=== PATIENT | female | born 1990 | race Caucasian/White ===

== ENCOUNTER 2017-10-15 08:51 | Emergency (ER) | payer OTHER ==
[2017-10-15 09:00] VITALS: BP 124/71; TEMP 97.1; BMI 20.9
--- NOTE | 2017-10-15 09:12 | ED.PDOC ---
General ED Provider: Dr. CAROL PHILLIPS Chief Complaint: Abdominal Pain Stated Complaint: Severe abdominal pain Time Seen by Physician: 09:08 Mode of Arrival: Walk-In Information Source: Patient Exam Limitations: No limitations Nursing and Triage Documentation Reviewed and Agree: Yes Review of Systems - Review Of Systems Constitutional: Reports: Malaise Respiratory: Reports: No symptoms GI: Reports: Abdominal pain All Other Systems: Reviewed and Negative Past Medical History - Past Medical History Endocrine: Reports: None Cardiovascular: Reports: None Respiratory: Reports: None Hematological: Reports: None Gastrointestinal: Reports: None Genitourinary: Reports: None Neuro/Psych: Reports: None Musculoskeletal: Reports: None Cancer: Reports: None Last Menstrual Period: on menses for 3 years - Surgical History General Surgical History: Reports: Other (bilateral tubal ligation) - Family History Family History: Reports: None - Social History Smoking Status: Former smoker Hx Substance Use: Yes (not recently) Alcohol Screening: None - Immunizations Tetanus Shot up to Date: Yes Physical Exam - Physical Exam Appearance: Well-appearing Pain Distress: Moderate (Diffuse abdominal pain with gentle palpation) ENT: Ears normal, Nose normal, Oropharynx normal Respiratory: Airway patent, Breath sounds clear, Breath sounds equal Cardiovascular: RRR, Pulses normal GI/: Tender (Diffuse abdominal wall tenderness with minimal palpation) Musculoskeletal: Normal strength, ROM intact Skin: Warm, Dry, Normal color Neurological: Sensation intact, Motor intact, Reflexes intact, Alert, Oriented Psychiatric: Affect appropriate, Mood appropriate Critical Care Note - Critical Care Note Total Time (mins): 30 Course - Course Hematology/Chemistry: 10/15/17 09:25 10/15/17 09:25 Orders, Labs, Meds: Lab Review 10/15/17 10/15/17 10/15/17 09:15 09:25 09:25 WBC 5.22 RBC 4.08 L Hgb 11.9 L Hct 34.9 L MCV 85.5 MCH 29.2 MCHC 34.1 RDW Coeff of Julio 11.9 Plt Count 242 Immature Gran % (Auto) 0.4 Neut % (Auto) 60.2 Lymph % (Auto) 24.9 Zavala % (Auto) 8.2 Eos % (Auto) 5.7 Baso % (Auto) 0.6 Immature Gran # (Auto) 0.0 Neut # 3.1 Lymph # 1.3 Zavala # 0.4 Eos # 0.3 Baso # 0.0 Sodium 140 Potassium 3.6 Chloride 107 Carbon Dioxide 23 Anion Gap 13.6 BUN 10 Creatinine 0.74 Estimated GFR (MDRD) 95.00 BUN/Creatinine Ratio 13.51 Glucose 95 Calcium 9.3 Total Bilirubin 0.44 AST 9 L ALT 8 L Alkaline Phosphatase 65 Total Protein 7.6 Albumin 3.9 Globulin 3.7 Albumin/Globulin Ratio 1.05 Lipase 28 Serum , Qual Urine Color Yellow Urine Clarity Clear Urine pH 6.5 Ur Specific [place] 1.010 Urine Protein Negative Urine Glucose (UA) Negative Urine Ketones Negative Urine Blood Trace-lysed Urine Nitrite Negative Urine Bilirubin Negative Urine Urobilinogen 0.2 Ur Leukocyte Esterase Trace Urine Microscopic RBC 2-5 Urine Microscopic WBC 2-5 Ur Squamous Epith Cells 2-5 Urine Bacteria Trace Urine Mucus 1+ 10/15/17 09:25 WBC RBC Hgb Hct MCV MCH MCHC RDW Coeff of Julio Plt Count Immature Gran % (Auto) Neut % (Auto) Lymph % (Auto) [place] % (Auto) Eos % (Auto) Baso % (Auto) Immature Gran # (Auto) Neut # Lymph # [place]ala # Eos # Baso # Sodium Potassium Chloride Carbon Dioxide Anion Gap BUN Creatinine Estimated GFR (MDRD) BUN/Creatinine Ratio Glucose Calcium Total Bilirubin AST ALT Alkaline Phosphatase Total Protein Albumin Globulin Albumin/Globulin Ratio Lipase Serum , Qual Negative Urine Color Urine Clarity Urine pH Ur Specific [place] Urine Protein Urine Glucose (UA) Urine Ketones Urine Blood Urine Nitrite Urine Bilirubin Urine Urobilinogen Ur Leukocyte Esterase Urine Microscopic RBC Urine Microscopic WBC Ur Squamous Epith Cells Urine Bacteria Urine Mucus Orders Category Date Time Status NPO REMINDER: IMAGING ONCE CARE 10/15/17 10:26 Active CBC W/ AUTO DIFF Stat LAB 10/15/17 09:25 Completed COMPREHENSIVE METABOLIC PANEL Stat LAB 10/15/17 09:25 Completed LIPASE Stat LAB 10/15/17 09:25 Completed SERUM TEST [SERUM ] Stat LAB 10/15/17 09:25 Completed URINALYSIS C & S IF INDICATED Stat LAB 10/15/17 09:15 Completed Ondansetron HCl/Pf [Zofran 4 mg/2 ml] MEDS 10/15/17 09:16 Discontinued 4 mg IVP ONCE STA Sodium Chloride 0.9% [Sodium Chloride] 1,000 ml MEDS 10/15/17 09:15 Active IV 125 mls/hr CT ABDOMEN/PELVIS W CONTRAST Stat RADS 10/15/17 10:25 Completed Medications Generic Name Dose Route Start Last Admin Trade Name Frefabio PRN Reason Stop Dose Admin Sodium Chloride 1,000 mls @ 125 mls/hr 10/15/17 09:15 10/15/17 09:34 Sodium Chloride IV 10/15/17 17:14 125 mls/hr .Q8H STA Administration Discontinued Medications Generic Name Dose Route Start Last Admin Trade Name Faraz PRN Reason Stop Dose Admin Ondansetron HCl 4 mg 10/15/17 09:16 10/15/17 09:35 Zofran 4 Mg/2 Ml IVP 10/15/17 09:17 4 mg ONCE STA Administration Vital Signs: Temp Pulse Resp BP Pulse Ox 10/15/17 08:53 97.1 F L 103 H 20 124/71 98 Departure - Departure Time of Disposition: 12:09 Disposition: HOME SELF-CARE Discharge Problem: Abdominal pain Qualifiers: Abdominal location: generalized Qualified Code(s): R10.84 - Generalized abdominal pain Instructions: Acute Abdominal Pain (ED) Condition: Good Pt referred to PMD for follow-up: Yes (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 Follow up with Health Information Manager for your longstanding history of vaginal bleeding. Follow up as needed with primary care provider. Prescriptions: Tramadol HCl [Ultram] 50 mg PO Q6-8H PRN #14 tablet PRN Reason: Moderate Pain Allergies/Adverse Reactions: Allergies Penicillins Allergy (Severe, Unverified 10/15/17 09:04) swelling, difficulty breathing Pt notified to get medical alert necklace Sulfa (Sulfonamide Antibiotics) Allergy (Severe, Unverified 10/15/17 09:04) swelling, difficulty breathing Pt notified to get medical alert necklace Home Medications: Ambulatory Orders Tramadol HCl [Ultram] 50 mg PO Q6-8H PRN #14 tablet 10/15/17 Disposition Discussed With: Patient (Discussed at length re WBC, labs in general and CT with contrast; no specific cause of pain found. Pt reassurred, satisfied; understands plan)
[2017-10-15] MEDS ORDERED: SODIUM CHLORIDE 1,000 ML IV STA (09:15)
[2017-10-15] MEDS ORDERED: ZOFRAN 4 MG/2 ML IVP STA (09:16)
[2017-10-15 09:41] LABS: BASOPHILS % (AUTO) 0.6 % (0.0-3.0); EOSINOPHILS # (AUTO) 0.3 K/ul (0.0-0.7); EOSINOPHILS % (AUTO) 5.7 % (0.0-7.0); HEMATOCRIT 34.9 % (37.0-47.0); HEMOGLOBIN 11.9 g/dl (12.0-16.0); IMMATURE GRANULOCYTE % (AUTO) 0.4 % (0.0-5.0); LYMPHOCYTES # (AUTO) 1.3 K/uL (0.60-3.4); LYMPHOCYTES % (AUTO) 24.9 (10.0-50.0); MEAN CORPUSCULAR HEMOGLOBIN 29.2 pg (27.0-31.0); MEAN CORPUSCULAR HGB CONC 34.1 (31.8-35.4); MEAN CORPUSCULAR VOLUME 85.5 fl (81.0-99.0); MONOCYTES # (AUTO) 0.4 K/uL (0.4-2.0); MONOCYTES % (AUTO) 8.2 (0-10); NEUTROPHILS # (AUTO) 3.1 K/ul (2.0-6.9); NEUTROPHILS % (AUTO) 60.2; PLATELET COUNT 242 10^3/uL (140-440); RED BLOOD COUNT 4.08 10^6/ul (4.20-5.40); WHITE BLOOD COUNT 5.22 K/ul (4.6-10.2)
[2017-10-15 09:55] LABS: SERUM PREGNANCY INTERNAL QC INTERNAL QC VALID
[2017-10-15 10:03] LABS: ALBUMIN 3.9 g/dL (3.4-5.0); ALBUMIN/GLOBULIN RATIO 1.05; ANION GAP 13.6; BILIRUBIN,TOTAL 0.44 mg/dL (0.00-1.20); BUN/CREATININE RATIO 13.51; CALCIUM 9.3 mg/dL (8.2-10.2); CREATININE 0.74 mg/dL (0.60-1.30); POTASSIUM 3.6 mmol/L (3.5-5.10); TOTAL PROTEIN 7.6 g/dL (6.4-8.2)
[2017-10-15 10:14] LABS: BILIRUBIN,URINE Negative (NEGATIVE); KETONES,URINE Negative (NEGATIVE); LEUKOCYTE ESTERASE ,URINE Trace (NEGATIVE); NITRITE,URINE Negative (NEGATIVE); PH,URINE 6.5 (5-9); PROTEIN,URINE Negative (NEGATIVE); URINE, BLOOD Trace-lysed (NEGATIVE)
[2017-10-15 10:15] LABS: ADD URINE MICROSCOPIC YES
[2017-10-15 10:23] LABS: BACTERIA,URINE TRACE (NOT PRESENT)
--- NOTE | 2017-10-15 11:47 | CT ---
EXAM: CT ABDOMEN AND PELVIS HISTORY: Abdominal pain TECHNIQUE: CT abdomen and pelvis with intravenous contrast. Images were reconstructed using 5 mm sec tion thickness. Reformations were prepared. 75 mL Omnipaque. COMPARISON: None FINDINGS: Motion degraded image quality. No focal hepatic or splenic lesions. Gallbladder, pancreas and adren al glands appear normal. Normal enhancement of the kidneys. No hydronephrosis. Normal abdominal ao rta. No gastric distension. The cecum lies within the lower right adnexa and the appendix, if present was not seen. Normal bowel gas pattern. Prominent periuterine venous complex with bilateral dilated go marquis veins. Ovaries appeared have several small follicles. The uterus and urinary bladder were unr emarkable. No ascites or inflammatory infiltration of the abdominal fat was seen. Ventral abdominal wall is intact without herniation. Bones appear appropriate for age. Lung bases a re clear. There is no pneumoperitoneum. IMPRESSION: No obvious acute intra-abdominal or pelvic abnormality. No appendix was seen. Incidenta l note of a prominent periuterine venous complex and bilateral dilated gonadal veins.
== END 2017-10-15 12:38 | disposition home or self-care (01) ==
LOC: ED 08:51
DX: R10.84 Generalized abdominal pain (principal)
CPT/HCPCS: 36415; 80053; 81001; 83690; 84703; 85025; 96361; 96374; 99283